=== PATIENT | female | born 1980 | race Caucasian/White ===

== ENCOUNTER 2016-10-04 09:47 | Emergency (ER) | payer OTHER ==
[~2016-10-04] VITALS: Ht 160 cm; Wt 73.0 kg
[~2016-10-04 09:47] MED LIST: ASPI-676; CLOP75TA19; METO-448
[2016-10-04 10:03] VITALS: Ht 160 cm; Wt 73.0 kg
[2016-10-04 12:03] LABS: ADD SCAN DIFF NO
[2016-10-04 12:12] LABS: ADD UMIC YES; BASOPHILS % 0.5 % (0.0-2.0); EOSINOPHILS % 0.7 % (0.0-7.0); HEMATOCRIT 37.3 % (37.0-47.0); HEMOGLOBIN 12.1 g/dl (12.0-16.0); LYMPHOCYTES # 2.6 10^3/ul (0.8-2.9); MEAN CORPUSCULAR HEMOGLOBIN 27.4 pg (29.0-33.0); MEAN CORPUSCULAR HGB CONC 32.4 g/dl (32.0-37.0); MEAN CORPUSCULAR VOLUME 84.4 fl (82.0-101.0); MEAN PLATELET VOLUME 10.2 fl (7.4-10.4); MONOCYTE # 0.2 10^3/ul (0.3-0.9); MONOCYTES % 3.9 % (0.0-11.0); NEUTROPHIL # 2.8 10^3/ul (1.6-7.5); NEUTROPHILS % 49.7 % (39.0-77.0); PLATELET COUNT 260 10^3/UL (140-415); RED BLOOD COUNT 4.42 10^6/ul (4.20-5.40); RED CELL DISTRIBUTION WIDTH 14.7 % (11.5-14.5); URINE BILIRUBIN (Dip) NEGATIVE (NEGATIVE); URINE BLOOD (Dip) NEGATIVE (NEGATIVE); URINE COLOR LT. YELLOW (YELLOW); URINE GLUCOSE (Dip) NEGATIVE (NEGATIVE); URINE KETONES (Dip) NEGATIVE (NEGATIVE); URINE LEUKOCYTE ESTERASE (Dip) TRACE (NEGATIVE); URINE NITRITE (Dip) NEGATIVE (NEGATIVE); URINE TOTAL PROTEIN (Dip) NEGATIVE (NEGATIVE); URINE UROBILINOGEN (Dip) 0.2 E.U./dL (0.1-1.0); WHITE BLOOD COUNT 5.7 10^3/ul (4.8-10.8)
[2016-10-04 12:36] LABS: BACTERIA,URINE FEW
--- NOTE | 2016-10-04 13:02 | RADRPT ---
PROCEDURE: OB Ultrasound. CLINICAL INDICATION: Positive test. Vaginal bleeding. TECHNIQUE: Ultrasound of the pelvis was performed with transabdominal and transvaginal sonography in the axial and sagittal planes. COMPARISON: No prior study is available for comparison. FINDINGS: There is no intrauterine gestational sac. The uterus measures 8.0 x 4.0 x 5.7 cm. The endometrium is not well visualized. The right ovary appears normal measuring 2.2 x 1.5 x 1.5 cm. The left ovary appears normal measuring 2.8 x 1.5 x 2.0 cm. Color Doppler and pulsed Doppler sonography demonstrate normal flow to the ovaries. There is no other pelvic mass or free fluid. IMPRESSION: 1. No intrauterine gestational sac. If the patient has a positive test, ectopic gestatio n cannot be excluded. 2. Endometrium not well visualized. 3. Otherwise normal study. RPTAT: QQ .Abhi Hobbs MD, MD Date Time Electronically viewed and signed by .Abhi Hobbs MD, MD on 10/04/2016 13:02 .R/
[2016-10-04] MEDS ORDERED: CEPH-443 PO (13:20)
[2016-10-04 13:45] VITALS: BP 128/72; PULSE 66; RESP 16; TEMP 98.1
--- NOTE | 2016-10-04 15:20 | ERD ---
ER Documentation Chief Complaint Date/Time DATE: 10/04/16 TIME: 15:16 Chief Complaint VAG BLEEDING AND 5 WEEKS HPI This patient is a 36-year-old female who is Ab1 LC 5 reportedly 5 weeks currently presenting to the emergency department for vaginal bleeding which began yesterday. Today the patient noticed a blood clot. The patient has needed to use 2 pads for vaginal bleeding today. The patient denies suprapubic cramping or pain. Patient denies urinary symptoms or fevers. The patient has been taking no medications for relief of symptoms. ROS All systems reviewed and are negative except as per history of present illness. Medications Home Meds Active Scripts Cephalexin* (Keflex*) 500 Mg Capsule, 500 MG PO BID for 7 Days, #14 CAP Prov:DARCI SWARTZ PA-C 10/04/16 Reported Medications Aspirin (Brooke Child) 81 Mg Chew, daily 10/03/11 Clopidogrel Bisulfate (Plavix) 75 Mg Tablet, daily 10/03/11 Metoprolol Tartrate* (Lopressor*) 25 Mg Tab, daily 10/03/11 Allergies Allergies: Coded Allergies: No Known Allergy (Unverified , 09/06/13) PMhx/Soc History of Surgery: Yes (angiogram ,triple bypass) Anesthesia Reaction: No Hx Neurological Disorder: No Hx Respiratory Disorders: No Hx Cardiac Disorders: Yes (heart attack at age 24 ,cad) Hx Psychiatric Problems: No Hx Miscellaneous Medical Probl: No Hx Alcohol Use: No Hx Substance Use: No Hx Tobacco Use: No Smoking Status: Current every day smoker FmHx Noncontributory for chief complaint Physical Exam Vitals Vital Signs Date Time Temp Pulse Resp B/P Pulse Ox O2 Delivery O2 Flow Rate FiO2 10/04/16 13:45 98.1 66 16 128/72 100 Room Air 10/04/16 10:03 98.7 59 18 125/67 100 Physical Exam Const: The patient is resting comfortably in no acute distress Head: Atraumatic Eyes: Normal Conjunctiva ENT: Normal External Ears, Nose and Mouth. Neck: Full range of motion..~ No meningismus. Resp: Clear to auscultation bilaterally Cardio: Regular rate and rhythm, no murmurs Abd: Soft, non tender, gravid abdomen. Normal bowel sounds Skin: No petechiae or rashes Back: No midline or flank tenderness Ext: No cyanosis, or edema Neur: Awake and alert Psych: Normal Mood and Affect Result Diagram: 10/04/16 1150 Results 24 hrs Laboratory Tests Test 10/04/16 11:50 White Blood Count 5.710^3/ul Red Blood Count 4.4210^6/ul Hemoglobin 12.1g/dl Hematocrit 37.3% Mean Corpuscular Volume 84.4fl Mean Corpuscular Hemoglobin 27.4pg Mean Corpuscular Hemoglobin Concent 32.4g/dl Red Cell Distribution Width 14.7% Platelet Count 83740^3/UL Mean Platelet Volume 10.2fl Neutrophils % 49.7% Lymphocytes % 45.0% Monocytes % 3.9% Eosinophils % 0.7% Basophils % 0.5% Nucleated Red Blood Cells % 0.0/100WBC Neutrophils # 2.810^3/ul Lymphocytes # 2.610^3/ul Monocytes # 0.210^3/ul Eosinophils # 0.010^3/ul Basophils # 0.010^3/ul Nucleated Red Blood Cells # 0.010^3/ul Urine Color LT. YELLOW Urine Clarity CLEAR Urine pH 6.0 Urine Specific [place] 1.020 Urine Ketones NEGATIVE Urine Nitrite NEGATIVE Urine Bilirubin NEGATIVE Urine Urobilinogen 0.2 E.U./dL Urine Leukocyte Esterase TRACE Urine Microscopic RBC 2-5/HPF Urine Microscopic WBC 2-5/HPF Urine Bacteria FEW Urine Hemoglobin NEGATIVE Urine Glucose NEGATIVE% Urine Total Protein NEGATIVE Beta HCG, Quantitative 1650.5mIU/ml Procedures/MDM EMERGENCY DEPARTMENT COURSE / MEDICAL DECISION MAKING: This is a 36-year-old female who comes to the emergency room secondary to complaints of vaginal bleeding. The patient is currently reportedly 5 weeks . Lab results reviewed and showed no signs of leukocytosis or anemia. Beta hCG is consistent with term of . Urinalysis shows trace leukocytes. Radiology: PROCEDURE: OB Ultrasound. CLINICAL INDICATION: Positive test. Vaginal bleeding. TECHNIQUE: Ultrasound of the pelvis was performed with transabdominal and transvaginal sonography in the axial and sagittal planes. COMPARISON: No prior study is available for comparison. FINDINGS: There is no intrauterine gestational sac. The uterus measures 8.0 x 4.0 x 5.7 cm. The endometrium is not well visualized. The right ovary appears normal measuring 2.2 x 1.5 x 1.5 cm. The left ovary appears normal measuring 2.8 x 1.5 x 2.0 cm. Color Doppler and pulsed Doppler sonography demonstrate normal flow to the ovaries. There is no other pelvic mass or free fluid. IMPRESSION: 1. No intrauterine gestational sac. If the patient has a positive test, ectopic gestation cannot be excluded. 2. Endometrium not well visualized. 3. Otherwise normal study. RPTAT: QQ .Abhi Hobbs MD, MD Date Time Electronically viewed and signed by .Abhi Hobbs MD, MD on 10/04/2016 13:02 .R/ CC: DARCI SWARTZ PA-C Due to the fact that no intrauterine was identified on imaging studies I contacted the on-call labor is Dr. Angelina Gilbert, who recommended strict 48 hour follow-up to the emergency department for repeat evaluation including repeat beta hCG. Patient was also given explicit ectopic precaution counseling and she understands this information. The primary diagnosis is vaginal bleeding and patient less than 20 weeks gestation. Secondary diagnosis is urinary tract infection I have low suspicion for ectopic , ovarian torsion, pyelonephritis, septicemia, placenta previa, placenta abruptio, acute abdomen, or other emergent conditions at this time. Discharge: I have discussed the lab results and diagnostic findings with the patient and answered any questions or concerns. The patient was discharged with a prescription for cephalexin. The patient will return to the department in 48 hours for repeat evaluation. The patient was advised to followup with their PMD in 1-2 days and to return to the Emergency Department if there are any new or worsening symptoms. The patient understood and agreed with the diagnosis, treatment and plan. The patient is stable for discharge at this time. Departure Diagnosis: Primary Impression: Vaginal bleeding in patient at less than 20 weeks ges... Additional Impression: Urinary tract infection Condition: Fair Patient Instructions: Understanding Urinary Tract Infections (UTIs), Bleeding During Early Referrals: COMM[facility] YOU HAVE RECEIVED A MEDICAL SCREENING EXAM AND THE RESULTS INDICATE THAT YOU DO NOT HAVE A CONDITION THAT REQUIRES URGENT TREATMENT IN THE EMERGENCY DEPARTMENT. FURTHER EVALUATION AND TREATMENT OF YOUR CONDITION CAN WAIT UNTIL YOU ARE SEEN IN YOUR DOCTORS OFFICE WITHIN THE NEXT 1-2 DAYS. IT IS YOUR RESPONSIBILITY TO MAKE AN APPOINTMENT FOR FOLOW-UP CARE. IF YOU HAVE A PRIMARY DOCTOR --you should call your primary doctor and schedule an appointment IF YOU DO NOT HAVE A PRIMARY DOCTOR YOU CAN CALL OUR PHYSICIAN REFERRAL HOTLINE AT IF YOU CAN NOT AFFORD TO SEE A PHYSICIAN YOU CAN CHOSE FROM THE FOLLOWING [facility] CL[facility] [address] [facility] [address] [facility] [address] [facility] [address] [facility] [address] [facility] [address] Additional Instructions: Please return in 48 hours for repeat examination and laboratory studies. Follow-up with your primary care physician within 1 week. Return to the emergency department immediately should you have any new or worsening symptoms, uncontrolled fevers, or other unexplained symptoms. Take all medications as directed. DARCI SWARTZ PA-C Oct 04, 2016 15:20
== END 2016-10-04 13:48 | disposition home or self-care (01) ==
LOC: FTE 09:47
DX: O20.9 Hemorrhage in early pregnancy, unspecified (principal); I25.10 Atherosclerotic heart disease of native coronary artery without angina pectoris; F17.210 Nicotine dependence, cigarettes, uncomplicated; O23.41 Unspecified infection of urinary tract in pregnancy, first trimester; O99.411 Diseases of the circulatory system complicating pregnancy, first trimester; O99.331 Smoking (tobacco) complicating pregnancy, first trimester; Z3A.01 Less than 8 weeks gestation of pregnancy; Z79.82 Long term (current) use of aspirin
CPT/HCPCS: 36415; 76801; 76817; 81001; 84702; 85025; 86900; 86901; 87086; Z7502; 81003

== ENCOUNTER 2016-11-15 16:34 | Emergency (ER) | payer OTHER ==
[~2016-11-15] VITALS: Ht 162.6 cm; Wt 73.0 kg
[~2016-11-15 16:34] MED LIST changes: +CEPH-443 PO
[2016-11-15 16:42] VITALS: Ht 162.6 cm; Wt 73.0 kg
[2016-11-15 17:41] LABS: ADD UMIC YES; URINE BILIRUBIN (Dip) NEGATIVE (NEGATIVE); URINE COLOR LT. YELLOW (YELLOW); URINE GLUCOSE (Dip) NEGATIVE (NEGATIVE); URINE KETONES (Dip) NEGATIVE (NEGATIVE); URINE NITRITE (Dip) NEGATIVE (NEGATIVE); URINE UROBILINOGEN (Dip) 0.2 E.U./dL (0.1-1.0)
[2016-11-15 18:12] LABS: ADD SCAN DIFF NO
[2016-11-15 18:18] LABS: BASOPHILS % 0.6 % (0.0-2.0); EOSINOPHILS # 0.1 10^3/ul (0.0-0.5); EOSINOPHILS % 1.2 % (0.0-7.0); HEMATOCRIT 36.9 % (37.0-47.0); HEMOGLOBIN 12.7 g/dl (12.0-16.0); LYMPHOCYTES # 2.4 10^3/ul (0.8-2.9); LYMPHOCYTES % 36.4 % (15.0-51.0); MEAN CORPUSCULAR HEMOGLOBIN 29.3 pg (29.0-33.0); MEAN CORPUSCULAR HGB CONC 34.4 g/dl (32.0-37.0); MEAN CORPUSCULAR VOLUME 85.2 fl (82.0-101.0); MEAN PLATELET VOLUME 9.8 fl (7.4-10.4); MONOCYTE # 0.4 10^3/ul (0.3-0.9); MONOCYTES % 5.5 % (0.0-11.0); NEUTROPHIL # 3.7 10^3/ul (1.6-7.5); NEUTROPHILS % 56.1 % (39.0-77.0); PLATELET COUNT 272 10^3/UL (140-415); RED BLOOD COUNT 4.33 10^6/ul (4.20-5.40); RED CELL DISTRIBUTION WIDTH 13.6 % (11.5-14.5); WHITE BLOOD COUNT 6.6 10^3/ul (4.8-10.8)
--- NOTE | 2016-11-15 18:25 | RADRPT ---
PROCEDURE: US OB. CLINICAL INDICATION: . Vaginal bleeding. TECHNIQUE: Multiple sonographic images of the pelvis were obtained. Transabdominal and transvagin al views of the pelvis are available for review. The images were reviewed on a PACS workstation. COMPARISON: 10/04/2016 FINDINGS: An intrauterine probable early gestational sac at 22.5 mm is identified, corresponding to 7 weeks 1 day size.. No pole or cardiac activity is detected. No subchorionic hemorrhage is identifi ed. There is an 8 mm simple cyst/follicle in the right ovary. Right ovary is otherwise normal appe arance of vascular flow. Left ovary was not visualized. There is no adnexal mass or free fluid. IMPRESSION: Intrauterine sac-like structure at 7 weeks 1 day size without pole or heart motion. A p ole is normally visualized at this size gestational sac. Considerations include demise or bli ghted ovum. No adnexal mass or free fluid to suggest ectopic although this cannot be excl uded. RPTAT: HMVK .Urbano Wei MD, MD Date Time Electronically viewed and signed by .Urbano Wei MD, MD on 11/15/2016 18:25 .K/
[2016-11-15 19:35] LABS: URINE TOTAL PROTEIN (Dip) TRACE (NEGATIVE)
[2016-11-15 19:36] LABS: URINE BLOOD (Dip) 3+ (NEGATIVE)
[2016-11-15 19:38] LABS: URINE LEUKOCYTE ESTERASE (Dip) 1+ (NEGATIVE)
[2016-11-15 19:42] LABS: SQUAMOUS EPITHELIAL CELL,UR MODERATE
--- NOTE | 2016-11-15 20:46 | ERD ---
ER Documentation Chief Complaint Date/Time DATE: 11/15/16 TIME: 20:39 Chief Complaint VAG BLEED X 1 DAY , 10 WEEKS PREG , LMP 09/01/16 HPI Patient is a 36-year-old female, , who presents to the emergency department for concerns of vaginal bleeding. She states that her vaginal bleeding started yesterday. Patient states initially she had dark red blood however her blood is now become bright in color. Patient reports bleeding only when wiping herself with toilet paper. She denies using any pads. Patient denies any dysuria, frequency, urgency or hematuria. Patient denies any fevers , chills. She does report intermittent nausea and vomiting throughout her . Patient denies any abdominal pain or pelvic pain at this time. Last menstrual period on 08-19-16. Per dates, patient is approximately 10 weeks . ROS All systems reviewed and are negative except as per history of present illness. Medications Home Meds Active Scripts Cephalexin* (Keflex*) 500 Mg Capsule, 500 MG PO BID for 7 Days, #14 CAP Prov:DARCI SWARTZ PA-C 10/04/16 Reported Medications Aspirin (Brooke Child) 81 Mg Chew, daily 10/03/11 Clopidogrel Bisulfate (Plavix) 75 Mg Tablet, daily 10/03/11 Metoprolol Tartrate* (Lopressor*) 25 Mg Tab, daily 10/03/11 Allergies Allergies: Coded Allergies: No Known Allergy (Unverified , 11/15/16) PMhx/Soc History of Surgery: Yes (angiogram ,triple bypass) Anesthesia Reaction: No Hx Neurological Disorder: No Hx Respiratory Disorders: No Hx Cardiac Disorders: Yes (heart attack at age 24 ,cad) Hx Psychiatric Problems: No Hx Miscellaneous Medical Probl: No Hx Alcohol Use: No Hx Substance Use: No Hx Tobacco Use: No Smoking Status: Never smoker Physical Exam Vitals Vital Signs Date Time Temp Pulse Resp B/P Pulse Ox O2 Delivery O2 Flow Rate FiO2 11/15/16 16:42 98.2 67 18 123/60 98 Physical Exam GENERAL: Well-developed, well-nourished female. Appears in no acute distress. Speaking in full sentences HEAD: Normocephalic, atraumatic. EYES: Pupils are equally reactive bilaterally. EOMs grossly intact. No conjunctival erythema. ENT: Moist mucous membranes. No uvula deviation. No kissing tonsils. NECK: Supple. No meningismus. Normal range of motion of the neck. LUNG: Clear to auscultation bilaterally. No rhonchi, wheezing, rales or coarse breath sounds. HEART: Regular rate and rhythm. No murmurs, rubs or gallops. ABDOMEN: No scars, ecchymosis or rashes noted. Soft, nontender, and nondistended. Positive bowel sounds in all four quadrants. No rebound tenderness , no guarding. (-) McBurney's point tenderness. No CVA tenderness. BACK: No midline tenderness. EXTREMITIES: Equal pulses bilaterally. No peripheral clubbing, cyanosis or edema. No unilateral leg swelling. NEUROLOGIC: Alert and oriented. Moving all four extremities without any difficulty. Normal speech. Steady gait. SKIN: Normal color. Warm and dry. No rashes or lesions. Result Diagram: 11/15/16 1809 Results 24 hrs Laboratory Tests Test 11/15/16 17:00 11/15/16 18:09 Urine Color LT. YELLOW Urine Clarity CLEAR Urine pH 5.5 Urine Specific [place] 1.020 Urine Ketones NEGATIVE Urine Nitrite NEGATIVE Urine Bilirubin NEGATIVE Urine Urobilinogen 0.2 E.U./dL Urine Leukocyte Esterase 1+ Urine Microscopic RBC 5-10/HPF Urine Microscopic WBC 0-2/HPF Urine Epithelial Cells Urine Squamous Epithelial Cells MODERATE Urine Bacteria Urine Hemoglobin 3+ Urine Glucose NEGATIVE% Urine Total Protein TRACE White Blood Count 6.610^3/ul Red Blood Count 4.3310^6/ul Hemoglobin 12.7g/dl Hematocrit 36.9% Mean Corpuscular Volume 85.2fl Mean Corpuscular Hemoglobin 29.3pg Mean Corpuscular Hemoglobin Concent 34.4g/dl Red Cell Distribution Width 13.6% Platelet Count 78086^3/UL Mean Platelet Volume 9.8fl Neutrophils % 56.1% Lymphocytes % 36.4% Monocytes % 5.5% Eosinophils % 1.2% Basophils % 0.6% Nucleated Red Blood Cells % 0.0/100WBC Neutrophils # 3.710^3/ul Lymphocytes # 2.410^3/ul Monocytes # 0.410^3/ul Eosinophils # 0.110^3/ul Basophils # 0.010^3/ul Nucleated Red Blood Cells # 0.010^3/ul Beta HCG, Quantitative 13078.0mIU/ml Procedures/MDM ED COURSE: The patient was stable throughout ED course. I kept the patient and/or family informed of laboratory and diagnostic imaging results throughout the ED course. DIAGNOSTIC IMAGING: Read by radiologist. DIAGNOSTIC IMAGING REPORT Patient: ELIJAH PATTERSON : 1980 Age: 36 Sex: F MR #: [id number] DOS: 11/15/16 1722 Ordering MD: INDIO SONI PA-C Location: [facility] Room/Bed: PROCEDURE: US OB. CLINICAL INDICATION: . Vaginal bleeding. TECHNIQUE: Multiple sonographic images of the pelvis were obtained. Transabdominal and transvaginal views of the pelvis are available for review. The images were reviewed on a PACS workstation. COMPARISON: 10/04/2016 FINDINGS: An intrauterine probable early gestational sac at 22.5 mm is identified, corresponding to 7 weeks 1 day size.. No pole or cardiac activity is detected. No subchorionic hemorrhage is identified. There is an 8 mm simple cyst/follicle in the right ovary. Right ovary is otherwise normal appearance of vascular flow. Left ovary was not visualized. There is no adnexal mass or free fluid. IMPRESSION: Intrauterine sac-like structure at 7 weeks 1 day size without pole or heart motion. A pole is normally visualized at this size gestational sac. Considerations include demise or blighted ovum. No adnexal mass or free fluid to suggest ectopic although this cannot be excluded. RPTAT: HMVK .Urbano Wei MD, MD Date Time Electronically viewed and signed by .Urbano Wei MD, MD on 11/15/2016 18:25 .K/ CC: INDIO SONI PA-C MEDICAL DECISION MAKING: This is 36-year-old female, who presents with concerns of vaginal bleeding 1 day. Vital signs were reviewed. Patient was afebrile. Patient was hemodynamically stable. CBC showed no evidence of systemic infection or severe anemia. She was a AB+, no RhoGam was given. Pelvic US showed Intrauterine sac-like structure at 7 weeks 1 day size without pole or heart motion. A pole is normally visualized at this size gestational sac. Considerations include demise or blighted ovum. No adnexal mass or free fluid to suggest ectopic although this cannot be excluded[place] [address]. Urinalysis showed hematuria, no signs of acute urinary infection. Urine is also likely a contaminated sample given moderate epithelial squamous cells. Given these findings, the patient's presentation is most consistent with vaginal bleeding during the first trimester. Unable to rule out demise versus spontaneous at this time. I have a much lower clinical concern for ectopic , ruptured ectopic , molar , subchorionic hematoma, incomplete , placental abruption, placental previa, and embryonic . DISCHARGE: At this time, patient is stable for discharge and outpatient management. She provided with a copy of all imaging and blood work obtained today. I had a conversation at length with the patient about the concerns of vaginal bleeding during the 1st trimester of . Patient and/or family understands that her vaginal bleeding can be a normal finding or a sign of miscarriage. I have instructed the patient to follow-up with her OBGYN 2 days for further monitoring including a repeat b-HCG level and ultrasound. I have instructed the patient to promptly return to the ER at any time for any new or worsening symptoms including increased pain, nausea, vomiting, continued bleeding, weakness, syncope or fever. The patient and/or family expressed understanding of and agreement with this plan. All questions were answered. Home care instructions were provided. Departure Diagnosis: Primary Impression: Vaginal bleeding in patient at less than 20 weeks ges... Condition: Stable Patient Instructions: Bleeding During Early Referrals: [facility] (PCP) Additional Instructions: Call your primary care doctor/OBGYN TOMORROW for an appointment during the next 1-2 days.See the doctor sooner or return here if your condition worsens before your appointment time. Repeat beta-hCG and ultrasound advised in 2 days. Return to the emergency department or follow-up with your primary care physician for further monitoring. INDIO SONI PA-C November 15, 2016 20:46
== END 2016-11-15 20:45 | disposition home or self-care (01) ==
LOC: FTE 16:34
DX: O20.9 Hemorrhage in early pregnancy, unspecified (principal); R10.2 Pelvic and perineal pain; Z3A.01 Less than 8 weeks gestation of pregnancy; Z79.01 Long term (current) use of anticoagulants; Z79.82 Long term (current) use of aspirin
CPT/HCPCS: 36415; 76801; 76817; 81001; 84702; 85025; 86900; 86901; Z7502

== ENCOUNTER 2016-11-17 15:08 | Emergency (ER) | payer OTHER ==
[~2016-11-17] VITALS: Ht 165.1 cm; Wt 71.5 kg
[2016-11-17 15:23] VITALS: Ht 165.1 cm; Wt 71.5 kg
[2016-11-17 16:46] LABS: ADD SCAN DIFF NO
[2016-11-17 16:49] LABS: BASOPHILS % 0.5 % (0.0-2.0); EOSINOPHILS # 0.1 10^3/ul (0.0-0.5); EOSINOPHILS % 0.9 % (0.0-7.0); HEMATOCRIT 38.8 % (37.0-47.0); LYMPHOCYTES # 2.7 10^3/ul (0.8-2.9); MEAN CORPUSCULAR HEMOGLOBIN 28.8 pg (29.0-33.0); MEAN CORPUSCULAR HGB CONC 33.5 g/dl (32.0-37.0); MEAN CORPUSCULAR VOLUME 85.8 fl (82.0-101.0); MEAN PLATELET VOLUME 10.1 fl (7.4-10.4); MONOCYTE # 0.6 10^3/ul (0.3-0.9); MONOCYTES % 6.5 % (0.0-11.0); NEUTROPHIL # 5.2 10^3/ul (1.6-7.5); NEUTROPHILS % 60.9 % (39.0-77.0); PLATELET COUNT 265 10^3/UL (140-415); RED BLOOD COUNT 4.52 10^6/ul (4.20-5.40); RED CELL DISTRIBUTION WIDTH 13.9 % (11.5-14.5); WHITE BLOOD COUNT 8.6 10^3/ul (4.8-10.8)
[2016-11-17 16:56] LABS: ADD UMIC YES; URINE BILIRUBIN (Dip) NEGATIVE (NEGATIVE); URINE BLOOD (Dip) 3+ (NEGATIVE); URINE COLOR YELLOW (YELLOW); URINE GLUCOSE (Dip) NEGATIVE (NEGATIVE); URINE KETONES (Dip) NEGATIVE (NEGATIVE); URINE LEUKOCYTE ESTERASE (Dip) TRACE (NEGATIVE); URINE NITRITE (Dip) NEGATIVE (NEGATIVE); URINE TOTAL PROTEIN (Dip) 1+ (NEGATIVE); URINE UROBILINOGEN (Dip) 1.0 E.U./dL (0.1-1.0)
--- NOTE | 2016-11-17 17:00 | ERD ---
ER Documentation Chief Complaint Date/Time DATE: 11/17/16 TIME: 17:00 Chief Complaint RECHECK HCG LEVELS, PT SEEN HERE ON 11/15/16 FOR VAG BLEED HERE FOR RECHECK HPI 36-year-old female patient A1 who states last menstrual period is August 19, 2016 with history of ID, angioplasty and trip-le bypass surgery in 2005 presents to the emergency department complaining of vaginal spotting for three days on Sunday. Patient states blood is only when she wipes. Patient has been evaluated by this facility two days ago and was told to return for repeat hcg and ultrasound since the report states gestational sac with no pole. Patient denies abdominal/pelvic pain, dysuria, fevers. Patient states that she is appointment to see her [employer] for the first time on next . She denies taking any medications ROS All systems reviewed and are negative except as per history of present illness. Medications Home Meds Active Scripts Cephalexin* (Keflex*) 500 Mg Capsule, 500 MG PO BID for 5 Days, CAP Prov:MARLENA GROSS PA-C 11/17/16 Cephalexin* (Keflex*) 500 Mg Capsule, 500 MG PO BID for 7 Days, #14 CAP Prov:DARCI SWARTZ PA-C 10/04/16 Reported Medications Aspirin (Brooke Child) 81 Mg Chew, daily 10/03/11 Clopidogrel Bisulfate (Plavix) 75 Mg Tablet, daily 10/03/11 Metoprolol Tartrate* (Lopressor*) 25 Mg Tab, daily 10/03/11 Allergies Allergies: Coded Allergies: No Known Allergy (Unverified , 11/15/16) PMhx/Soc History of Surgery: Yes (angiogram ,triple bypass) Anesthesia Reaction: No Hx Neurological Disorder: No Hx Respiratory Disorders: No Hx Cardiac Disorders: Yes (heart attack at age 24 ,cad) Hx Psychiatric Problems: No Hx Miscellaneous Medical Probl: No Hx Alcohol Use: No Hx Substance Use: No Hx Tobacco Use: No Smoking Status: Never smoker Physical Exam Vitals Vital Signs Date Time Temp Pulse Resp B/P Pulse Ox O2 Delivery O2 Flow Rate FiO2 11/17/16 15:23 98.5 65 17 120/58 100 Physical Exam GENERAL: well-developed/well-nourished, in no apparent distress, non-toxic appearing HENT: NC/AT, moist mucous membranes EYES: Conjunctiva normal NECK: Supple, no lymphadenopathy PULM: CTA bilaterally, no rales, rhonchi, or wheezing heard CV: Normal S1S2, RRR, good capillary refill GI: Soft, non-distended, non-tender to palpation Normal bowel sounds, no masses or organomegaly felt on exam No gross peritonitis, no bruits Negative Rovsing, negative [place], negative McBurney's point, Negative CVAT BACK: No masses EXT: No clubbing, cyanosis, or edema NEURO: Alert and Orientated SKIN: Intact, normal turgor PSYCH: Normal mood and mentation Result Diagram: 11/17/16 1630 Results 24 hrs Laboratory Tests Test 11/17/16 16:30 11/17/16 16:35 White Blood Count 8.610^3/ul Red Blood Count 4.5210^6/ul Hemoglobin 13.0g/dl Hematocrit 38.8% Mean Corpuscular Volume 85.8fl Mean Corpuscular Hemoglobin 28.8pg Mean Corpuscular Hemoglobin Concent 33.5g/dl Red Cell Distribution Width 13.9% Platelet Count 67505^3/UL Mean Platelet Volume 10.1fl Neutrophils % 60.9% Lymphocytes % 31.0% Monocytes % 6.5% Eosinophils % 0.9% Basophils % 0.5% Nucleated Red Blood Cells % 0.0/100WBC Neutrophils # 5.210^3/ul Lymphocytes # 2.710^3/ul Monocytes # 0.610^3/ul Eosinophils # 0.110^3/ul Basophils # 0.010^3/ul Nucleated Red Blood Cells # 0.010^3/ul Beta HCG, Quantitative 20815.0mIU/ml Urine Color YELLOW Urine Clarity CLOUDY Urine pH 8.5 Urine Specific [place] 1.015 Urine Ketones NEGATIVE Urine Nitrite NEGATIVE Urine Bilirubin NEGATIVE Urine Urobilinogen 1.0 E.U./dL Urine Leukocyte Esterase TRACE Urine Microscopic RBC >50/HPF Urine Microscopic WBC 2-5/HPF Urine Squamous Epithelial Cells MODERATE Urine Bacteria FEW Urine Mucus MANY Urine Hemoglobin 3+ Urine Glucose NEGATIVE% Urine Total Protein 1+ Procedures/MDM 36-year-old female patient A1 who states last menstrual period is August 19, 2016 with history of ID, angioplasty and trip-le bypass surgery in 2005 presents to the emergency department complaining of vaginal spotting when she wipes with toilet paper for three days on Sunday. I have reviewed patient 's past chart. Patient has been evaluated by this facility two days ago and was told to return for repeat beta hCG and ultrasound since the report states gestational sac with no pole. Lab work was drawn, CBC does not show any evidence of leukocytosis or anemia. Beta hCG two days ago on 11/15/2016 was 25,437. Today the beta hCG is 23,160 and ultrasound still does not show pole or yolk sac, this is likely a failed and will need close follow-up in another two days, discussed with her to follow-up with [employer]. I have discussed with her to return sooner to the ER for any worsening condition. Patient understood and agreed with this plan OB Ultrasound 11/17/2016: No pole or yolk sac is identified. 1. Blighted ovum. 2. 3.2 x 2.4 by 2.3 cm leiomyoma in the ventral fundus. 3. No subchorionic hemorrhage is identified. OB Ultrasound 11/15/2016: Intrauterine sac-like structure at 7 weeks 1 day size without pole or heart motion. A pole is normally visualized at this size gestational sac. Considerations include demise or blighted ovum. No adnexal mass or free fluid to suggest ectopic although this cannot be excluded. Departure Diagnosis: Primary Impression: Threatened Condition: Stable MARLENA GROSS PA-C Nov 17, 2016 17:00
--- NOTE | 2016-11-17 17:36 | RADRPT ---
PROCEDURE: US OB. CLINICAL INDICATION: Biophysical profile. TECHNIQUE: Transabdominal and transvaginal views of the pelvis are available for review. COMPARISON: No prior studies are available for comparison. FINDINGS: The uterus is identified and measures 10 cm sagittal by 6.1 cm AP by 6.8 cm transverse.. The uterus contains a leiomyoma measuring 3.2 x 2.3 x 2.4 cm. Nabothian cyst is identified on the cervix. The uterus contains a gestational sac with no yolk sac or pole identified. Placenta: A gestational sac is identified with a circumferential placenta. No pole or yolk sa c is identified. The gestational sac mean sac diameter is 2.3 cm which calculates out to 7 weeks 1 day. A pole should be seen at this gestational age. Presentation:No pole identified. Arthur-rump length:Not available. heart rate:Not detected. Amniotic fluid volume: Normal. Ultrasound estimated gestational age:7 weeks 1 day. No ovarian or adnexal mass lesion is seen. There is no free fluid. IMPRESSION: 1. Blighted ovum. 2. 3.2 x 2.4 by 2.3 cm leiomyoma in the ventral fundus. 3. No subchorionic hemorrhage is identified. RPTAT:AAJJ Physician Kayla Date Time Electronically viewed and signed by Physician Kayla on 11/17/2016 17:36 KARUNA/
[2016-11-17 17:54] LABS: BACTERIA,URINE FEW; MUCUS,URINE MANY; SQUAMOUS EPITHELIAL CELL,UR MODERATE; URINE RBCS >50 /HPF (0)
[2016-11-17] MEDS ORDERED: CEPH-443 PO (18:05)
== END 2016-11-17 19:22 | disposition home or self-care (01) ==
LOC: FTE 15:08
DX: O20.0 Threatened abortion (principal); I25.10 Atherosclerotic heart disease of native coronary artery without angina pectoris; Z3A.01 Less than 8 weeks gestation of pregnancy; Z79.01 Long term (current) use of anticoagulants; Z79.82 Long term (current) use of aspirin
CPT/HCPCS: 76801; 76817; 81001; 84702; 85025; 87086; Z7502